=== PATIENT | female | born 1940 | race Caucasian/White ===

== ENCOUNTER → 2022-11-26 10:26 | Outpatient (BNVA) | payer MEDICARE, SELFPAY | PROVIDERS: PCP Pediatrics; Referring Provider Pediatrics; Visit Provider Psychiatry & Neurology Neurology | DX: F03.90 Unspecified dementia, unspecified severity, without behavioral disturbance, psychotic disturbance, mood disturbance, and anxiety (principal); R41.3 Other amnesia; R42 Dizziness and giddiness; E55.9 Vitamin D deficiency, unspecified; R55 Syncope and collapse | CPT/HCPCS: 36415; 80053; 82306; 82607; 82746; 83735; 83921; 84439; 84443; 84481; 85025; 86146; 86780; 99203 ==

== ENCOUNTER → 2023-03-14 11:27 | Outpatient (BNVA) | payer MEDICARE, SELFPAY | PROVIDERS: PCP Pediatrics; Visit Provider Psychiatry & Neurology Neurology | DX: R41.3 Other amnesia (principal); R55 Syncope and collapse; R94.01 Abnormal electroencephalogram [EEG] | CPT/HCPCS: 99212 ==

== ENCOUNTER 2023-04-18 10:35 | Outpatient (CLI) | payer MEDICARE, SELFPAY ==
--- NOTE | 2023-04-18 11:15 | USCV_ITS ---
Jin Windy Age: 82 Gender: F : 1940 Exam Date: 04/18/2023 10:51 Ordering Phys: Ryne Avelar MD Technologist: JERICHO Exam Location: [facility] [place] Indication: dizziness and giddiness Risk Factors: None Previous Vascular Surgery: None Right Brachial BP: / Left Brachial BP: / Right Left Velocity (cm/s) Spectral Plaque Velocity (cm/s) Spectral Plaque Syst/Diast Broadening Syst/Diast Broadening 54.50/ 11.50 Prox CCA 85.70 / 0.00 51.70/ 12.80 Mid CCA 56.80 / 10.20 55.60/ 16.70 Distal CCA 46.50 / 9.20 Hetro 46.50/ 14.10 Prox ICA 37.10 / 7.70 Hetro 63.40/ 19.30 Mid ICA 40.40 / 12.00 72.40/ 15.40 Distal ICA 36.10 / 7.70 75.00 ECA 52.50 1.30 ICA/CCA 1.30 Antegrade Vertebral Antegrade 71.10/ 12.00 cm/s 75.50/ 10.40 cm/s Tri Subclavian Tri 49.40 75.30 FINDINGS Comparison: none available. No significant elevation of systolic or diastolic velocities. Waveforms are normal. Mild carotid plaque. CONCLUSIONS Bilateral ICA stenosis less than 50%. Mild carotid atherosclerotic plaque. Dr. Celia Frost DO (Electronically Signed) Final Date: 18 April 2023 12:44 S
== END 2023-04-18 10:36 | disposition home or self-care (01) ==
LOC: RAD 10:35
PROVIDERS: PCP Pediatrics; Visit Provider Psychiatry & Neurology Neurology
DX: R42 Dizziness and giddiness (principal); F03.90 Unspecified dementia, unspecified severity, without behavioral disturbance, psychotic disturbance, mood disturbance, and anxiety; I65.23 Occlusion and stenosis of bilateral carotid arteries
CPT/HCPCS: 93880

== ENCOUNTER → 2023-06-07 10:10 | Outpatient (BNVA) | payer MEDICARE, SELFPAY | PROVIDERS: PCP Pediatrics; Visit Provider Psychiatry & Neurology Neurology | DX: R94.01 Abnormal electroencephalogram [EEG] (principal); R55 Syncope and collapse; R41.3 Other amnesia | CPT/HCPCS: 95816 ==